=== PATIENT | female | born 1970 | race Caucasian/White ===

== ENCOUNTER → 2019-10-08 | Outpatient (CLI) | payer BC ==
[~2019-10-08] MED LIST: ALEVE 220MG220 MG PO; AMBIEN 10MG10 MG PO
== END ==
LOC: MC.RAD 06:54
DX: N63.20 Unspecified lump in the left breast, unspecified quadrant (principal)
CPT/HCPCS: G0279

== ENCOUNTER 2019-10-09 20:24 | Emergency (ER) | payer BC ==
[~2019-10-09] VITALS: Ht 157.5 cm; Wt 92.9 kg
[2019-10-09 20:31] VITALS: TEMP 99.3
[2019-10-09 20:56] LABS: BASO % 0.3 % (0.0-2.0); EOS # 0.1 (0.0-0.7); GRAN # 7.4 (1.4-6.5); GRAN % 66.1 % (42.2-75.2); HEMOGLOBIN 10.7 g/dl (12.5-16.0); LYMPH # 2.9 (1.2-3.4); LYMPH % 26.2 % (20.0-51.0); MEAN CELL VOLUME 83 fl (80.0-100.0); MEAN CORPUSCULAR HEMOGLOBIN 27 pg (27.0-31.0); MEAN CORPUSCULAR HGB CONC 32 g/dl (33.0-37.0); MEAN PLATELET VOLUME 10.5 fl (7.4-10.4); MONO # 0.7 (0.1-0.6); PLATELET COUNT 253 K/mm3 (130-400); RED BLOOD COUNT 4.03 M/mm3 (4.10-5.30); REDCELL DISTRIBUTION WIDTH-CV 13.8 % (11.5-14.5)
[2019-10-09 20:57] LABS: HEMATOCRIT 33.6 % (37.0-47.0)
[2019-10-09 21:04] LABS: ALANINE AMINOTRANSFERASE 17 U/L (4-34); ALBUMIN 3.2 gm/dL (3.5-5.0); ALKALINE PHOSPHATASE 126 U/L (50-136); ANION GAP 5 mmol/L (7-16); AST,SGOT 22 U/L (15-37); BILIRUBIN,TOTAL 0.5 mg/dL (0.0-1.0); BLOOD UREA NITROGEN 16 mg/dL (7-17); CALCIUM 8.3 mg/dL (8.4-10.2); CARBON DIOXIDE 23 mmol/L (22-30); CHLORIDE 108 mmol/L (98-107); CREATININE, serum 0.57 (0.52-1.25); GLUCOSE 98 mg/dL (74-106); POTASSIUM 3.4 mmol/L (3.4-5.0); SODIUM 136 mmol/L (137-145)
[2019-10-09 21:17] LABS: TROPONIN-I < 0.012 ng/mL (0.000-0.035)
[2019-10-09 21:40] LABS: ARTERIAL BLD GAS O2 SATURATION 96.1 % (92-100); ARTERIAL BLOOD GAS BASE EXCESS -2.4 (-2-2); ARTERIAL BLOOD GAS HCO3 20.1 meq/L (22-26); ARTERIAL BLOOD GAS PCO2 27.8 mmHg (35-45); ARTERIAL BLOOD GAS PO2 79.6 mmHg (80-100); ARTERIAL BLOOD GAS pH 7.48 (7.35-7.45)
[2019-10-09] MEDS ORDERED: AMBIEN 10MG10 MG PO (22:02)
[2019-10-09] MEDS ORDERED: ALEVE 220MG220 MG PO (22:02)
[2019-10-10 00:10] VITALS: BP 108/44; PULSE 128
== END 2019-10-10 00:10 | disposition short-term general hospital (02) ==
LOC: COL.ER 20:24
PROVIDERS: Emergency Medicine
DX: I50.9 Heart failure, unspecified (principal); J90 Pleural effusion, not elsewhere classified; E03.9 Hypothyroidism, unspecified; Z98.890 Other specified postprocedural states; Z95.1 Presence of aortocoronary bypass graft; Z86.59 Personal history of other mental and behavioral disorders
CPT/HCPCS: J1800; J1940; Q9967

== ENCOUNTER 2019-12-09 07:58 | Day surgery (SDC) | payer BC ==
[~2019-12-09] VITALS: Ht 160 cm; Wt 87.0 kg
[2019-12-09] VITALS (7 sets, daily range): BP systolic 101–127; BP diastolic 67–90; PULSE 57–75; TEMP 98.2
[2019-12-09] MEDS ORDERED: LASIX 20MG TABL20 MG PO (08:24)
[2019-12-09] MEDS ORDERED: TOPROL XL100 MG PO (08:24)
[2019-12-09] MEDS ORDERED: TAMBOCOR 1100 MG/TAB PO (08:25)
[2019-12-09] MEDS ORDERED: TAPAZOLE10 MG PO (08:26)
[2019-12-09] MEDS ORDERED: KLOR-CON SPRIN10 MEQ PO (08:26)
[2019-12-09] MEDS ORDERED: ELIQUIS 5MG PO (08:27)
[2019-12-09] MEDS ORDERED: TOPROL XL 25MG25 MG PO (09:26)
[2019-12-09 09:28] LABS: HEMOGLOBIN 13.6 g/dl (12.5-16.0); MEAN CELL VOLUME 84 fl (80.0-100.0); MEAN CORPUSCULAR HEMOGLOBIN 27 pg (27.0-31.0); MEAN CORPUSCULAR HGB CONC 32 g/dl (33.0-37.0); MEAN PLATELET VOLUME 11.1 fl (7.4-10.4); PLATELET COUNT 300 K/mm3 (130-400); RED BLOOD COUNT 5.11 M/mm3 (4.10-5.30); REDCELL DISTRIBUTION WIDTH-CV 16.5 % (11.5-14.5)
[2019-12-09 09:39] LABS: ANION GAP 6 mmol/L (7-16); BLOOD UREA NITROGEN 20 mg/dL (7-17); CALCIUM 8.6 mg/dL (8.4-10.2); CARBON DIOXIDE 25 mmol/L (22-30); CHLORIDE 105 mmol/L (98-107); CREATININE, serum 0.86 (0.52-1.25); GLUCOSE 88 mg/dL (74-106); MAGNESIUM 2.1 mg/dL (1.6-2.3); SODIUM 137 mmol/L (137-145)
[2019-12-09 10:12] LABS: THYROID STIMULATING HORMONE < 0.015 uIU/mL (0.465-4.680)
--- NOTE | 2019-12-09 10:50 | NUR ---
Pt ready for discharge at this time, she has recovered well from her cardioversion, has no complaints. verbalized understanding of dc/fu and rx instructions. iv is dc'd with cath intact, dressing applied.
== END 2019-12-09 10:50 | disposition home or self-care (01) ==
LOC: COL.CAR 07:58
PROVIDERS: Internal Medicine Adult Congenital Heart Disease
DX: I48.19 Other persistent atrial fibrillation (principal); I48.92 Unspecified atrial flutter; I50.32 Chronic diastolic (congestive) heart failure; E05.90 Thyrotoxicosis, unspecified without thyrotoxic crisis or storm; E66.9 Obesity, unspecified; Z68.32 Body mass index [BMI] 32.0-32.9, adult; Z88.1 Allergy status to other antibiotic agents; Z98.84 Bariatric surgery status; Z79.01 Long term (current) use of anticoagulants
CPT/HCPCS: J2704

== ENCOUNTER 2020-11-24 06:19 | Inpatient (IN) | payer OTHER ==
[2020-11-24] VITALS (16 sets, daily range): BP systolic 94–120; BP diastolic 41–68; PULSE 56–79; TEMP 97.7–99.3
[~2020-11-24] VITALS: Ht 157.6 cm; Wt 94.5 kg
[~2020-11-24 06:19] MED LIST changes: +ELIQUIS 5MG PO; +KLOR-CON SPRIN10 MEQ PO; +LASIX 80MG TABL80 MG PO; +TAMBOCOR 1100 MG/TAB PO; +TAPAZOLE10 MG PO; +TOPROL XL 25MG25 MG PO; +TOPROL XL100 MG PO
[2020-11-24 07:22] LABS: INR 1.8 (0.8-3.0); PROTHROMBIN TIME 20.1 SECONDS (9.7-12.8)
[2020-11-24 07:38] LABS: ALANINE AMINOTRANSFERASE 13 U/L (4-34); ALBUMIN 3.4 gm/dL (3.5-5.0); ALKALINE PHOSPHATASE 94 U/L (50-136); ANION GAP 4 mmol/L (7-16); AST,SGOT 21 U/L (15-37); BILIRUBIN,TOTAL 0.3 mg/dL (0.0-1.0); BLOOD UREA NITROGEN 26 mg/dL (7-17); CALCIUM 7.6 mg/dL (8.4-10.2); CARBON DIOXIDE 24 mmol/L (22-30); CHLORIDE 106 mmol/L (98-107); CREATININE, serum 0.89 (0.52-1.25); GLUCOSE 111 mg/dL (74-106); POTASSIUM 3.5 mmol/L (3.4-5.0); SODIUM 134 mmol/L (137-145); TOTAL PROTEIN 6.1 gm/dL (6.4-8.2)
[2020-11-24 07:41] LABS: MEAN CELL VOLUME 90 fl (80.0-100.0); MEAN CORPUSCULAR HGB CONC 32 g/dl (33.0-37.0); MEAN PLATELET VOLUME 11.3 fl (7.4-10.4); PLATELET COUNT 240 K/mm3 (130-400); RED BLOOD COUNT 1.95 M/mm3 (4.10-5.30); REDCELL DISTRIBUTION WIDTH-CV 15.8 % (11.5-14.5)
[2020-11-24 07:43] LABS: HEMOGLOBIN 5.6 g/dl (12.5-16.0); MEAN CORPUSCULAR HEMOGLOBIN 29 pg (27.0-31.0)
[2020-11-24 07:44] LABS: HEMATOCRIT 17.5 % (37.0-47.0)
[2020-11-24] MEDS ORDERED: TOPROL XL 25MG25 MG PO (07:48)
[2020-11-24] MEDS ORDERED: SYNTHROID0.125 MG/T PO (07:49)
[2020-11-24] MEDS ORDERED: K-TAB20 PO (07:49)
[2020-11-24] MEDS ORDERED: MACROBID 1100 MG/CAP PO (07:49)
[2020-11-24] MEDS ORDERED: IRON TABLETS325 MG PO (07:50)
[2020-11-24 07:52] LABS: TROPONIN-I < 0.012 ng/mL (0.000-0.035)
[2020-11-24 08:20] LABS: PARTIAL THROMBOPLASTIN TIME 16.6 SECONDS (26.0-37.0)
[2020-11-24 09:58] LABS: BASO % 0.4 % (0.0-2.0); EOS % 0.3 % (0-4.0); GRAN % 0.3 % (42.2-75.2); LYMPH % 14.6 % (20.0-51.0); MONO % 0.5 % (1.7-9.3)
[2020-11-24 09:59] LABS: LYMPH # 1.5 (1.2-3.4); MONO # 0.5 (0.1-0.6)
[2020-11-24 14:32] LABS: HEMATOCRIT 21.7 % (37.0-47.0); HEMOGLOBIN 6.9 g/dl (12.5-16.0)
--- NOTE | 2020-11-24 14:37 | NUR ---
PT RESTING COMFORTABLY IN BED. NS RUNNING THROUGH IV. MEDCIATIONS GIVEN. PT HAS NO COMPLAINTS AT THIS TIME. COMPLETED ADMISSION ASSESSMENTS. AT BEDSIDE. PT ORIENTED TO ROOM. CALL LIGHT WITHIN REACH. WILL CONTINUE TO MONITOR.
[2020-11-24 18:01] LABS: IRON,SERUM 232 ug/dL (35-150)
[2020-11-24 18:10] LABS: TOTAL IRON BINDING CAPACITY 439 ug/dL (265-497)
--- NOTE | 2020-11-24 20:30 | NUR ---
Initial shift assessment done- VSS, blood infusing-is almost completed- tolerated well-no adverse affects. Has Protonix drip at 20cc/hr, {8mg/hr}, also NS at 60cc/hr, Tele on . Will be NPO after MN. No requests at this time.
[2020-11-24 21:53] LABS: HEMATOCRIT 23.7 % (37.0-47.0); HEMOGLOBIN 7.5 g/dl (12.5-16.0)
[2020-11-25] VITALS (7 sets, daily range): BP systolic 102–119; BP diastolic 53–64; PULSE 58–91; TEMP 98–98.6
--- NOTE | 2020-11-25 06:00 | NUR ---
Did get just a few hours of rest last night-- repeat hgb during the night was 7.5,, Nanette aware. Going for EGD at 0730 this morning-- no stools last night. VSS.IV Fluids up for EGD, NS at 30cc/hr. Denies pain.
--- NOTE | 2020-11-25 07:08 | NUR ---
PT IS SITTING IN BED AWAITING EGD. ENDO HAS CALLED AND SAID THEY WILL BE UP SHORTLY TO GET HER. NO OTHER CONCERNS AT THIS TIME.
[2020-11-25 08:33] LABS: BASO % 0.6 % (0.0-2.0); EOS # 0.1 (0.0-0.7); EOS % 1.1 % (0-4.0); GRAN # 3.6 (1.4-6.5); GRAN % 67.2 % (42.2-75.2); LYMPH # 1.3 (1.2-3.4); LYMPH % 24.4 % (20.0-51.0); MEAN CELL VOLUME 92 fl (80.0-100.0); MEAN CORPUSCULAR HGB CONC 32 g/dl (33.0-37.0); MEAN PLATELET VOLUME 10.1 fl (7.4-10.4); MONO # 0.3 (0.1-0.6); PLATELET COUNT 177 K/mm3 (130-400); RED BLOOD COUNT 2.45 M/mm3 (4.10-5.30)
[2020-11-25 08:48] LABS: CALCIUM 7.3 mg/dL (8.4-10.2); CREATININE, serum 0.84 (0.52-1.25); HEMATOCRIT 22.6 % (37.0-47.0); HEMOGLOBIN 7.2 g/dl (12.5-16.0); MEAN CORPUSCULAR HEMOGLOBIN 29 pg (27.0-31.0); POTASSIUM 3.8 mmol/L (3.4-5.0)
--- NOTE | 2020-11-25 09:29 | NUR ---
PT RETURNED FROM EGD; REPORT STATES NOTHING FOUND. PT WILL REMAIN AT HOSPITAL FOR A COLONOSCOPY ON FRIDAY. ADVANCED TO AHA DIET TOLERATED. PT DENIES ANY PAIN OR NEEDS AT THIS TIME. WILL CONTINUE TO MONITOR.
--- NOTE | 2020-11-25 11:14 | NUR ---
Sw tried to complete assessment but pt was sleeping. Sw to try back later.
--- NOTE | 2020-11-25 12:45 | NUR ---
Sw tried to complete assessment again, but she was on a phone call. Sw to try back again later.
--- NOTE | 2020-11-25 13:13 | NUR ---
stopped by but nothing needed at this time.
[2020-11-25 14:19] LABS: HEMATOCRIT 22.6 % (37.0-47.0); HEMOGLOBIN 7.1 g/dl (12.5-16.0)
--- NOTE | 2020-11-25 14:53 | NUR ---
Sw met with the pt who stated her preference to return home once medically stable. The pt lives at home with her , Christian ph# [phone]. Pt informed Sw that she is independent on all ADLs and does not use any DME. The pt PCP is Dr. Feliz and gets her medications from [facility]. She has no troubles obtaining cost. The pt does not have a D[facility] and is not interested in one at this time. No other needs stated at this time. Sw to await further recommendations and follow up as needed. D/c : home.
--- NOTE | 2020-11-25 15:55 | NUR ---
PT DENIES ANY WANTS OR NEEDS AT THIS TIME. NO OTHER CONCERNS.
--- NOTE | 2020-11-25 20:00 | NUR ---
Initial shift assessment done- Started on Bowel prep of Miralax p.o at this time- Will be NPO after MN, colonoscopy at 0900 tomorrow,, no requests at this time. VSS- will have repaeat H&H at 2200.
[2020-11-25 22:38] LABS: HEMATOCRIT 24.5 % (37.0-47.0); HEMOGLOBIN 7.5 g/dl (12.5-16.0)
[2020-11-26 02:59] VITALS: BP 120/60; PULSE 69; TEMP 98
--- NOTE | 2020-11-26 05:30 | NUR ---
Did finish the bowel prep by midnight,, did not have any stools until about 0400-- liquid black/brown,, up to bathroom numerous times since--slowly clearing up.VSS.
--- NOTE | 2020-11-26 06:30 | NUR ---
PT IS LAYING IN BED UPON ENTRY. HAD JUST RETURNED FROM BATHROOM, THIS RN CHECKED BM WHICH WAS LIQUID, BUT HAD GREENISH BLACK SEDIMENT IN IT.
[2020-11-26 08:35] LABS: BASO # 0.1 (0.0-0.2); BASO % 0.9 % (0.0-2.0); EOS # 0.1 (0.0-0.7); EOS % 1.3 % (0-4.0); GRAN # 3.7 (1.4-6.5); LYMPH # 1.3 (1.2-3.4); LYMPH % 23.5 % (20.0-51.0); MEAN CELL VOLUME 93 fl (80.0-100.0); MEAN CORPUSCULAR HGB CONC 32 g/dl (33.0-37.0); MEAN PLATELET VOLUME 10.4 fl (7.4-10.4); MONO # 0.3 (0.1-0.6); MONO % 5.6 % (1.7-9.3); PLATELET COUNT 211 K/mm3 (130-400); RED BLOOD COUNT 2.52 M/mm3 (4.10-5.30); REDCELL DISTRIBUTION WIDTH-CV 15.4 % (11.5-14.5)
--- NOTE | 2020-11-26 08:36 | NUR ---
PT BEING PICKED UP FOR COLONOSCOPY SHORTLY, BMs HAVE BECOME INCREASINGLY CLEAR, STILL WITH BLACK/GREEN SEDIMENT.
[2020-11-26 08:49] LABS: HEMATOCRIT 23.5 % (37.0-47.0); HEMOGLOBIN 7.5 g/dl (12.5-16.0); MEAN CORPUSCULAR HEMOGLOBIN 30 pg (27.0-31.0)
[2020-11-26 08:50] LABS: CALCIUM 7.6 mg/dL (8.4-10.2); CREATININE, serum 0.81 (0.52-1.25); POTASSIUM 3.7 mmol/L (3.4-5.0)
[2020-11-26 08:53] VITALS: BP 121/65; PULSE 85; TEMP 97.8
[2020-11-26 13:00] VITALS: BP 111/70; PULSE 74; TEMP 98
[2020-11-26 15:32] VITALS: BP 98/49; PULSE 74; TEMP 97.8
[2020-11-26 15:34] VITALS: BP 98/53
[2020-11-26 20:00] VITALS: BP 106/62; PULSE 75; TEMP 98.9
--- NOTE | 2020-11-26 21:52 | NUR ---
PT RESTING COMFORATBLY IN BED. EVENING MEDICATIONS GIVEN. PT HAS NO COMPLAINTS AT THIS TIME. IV IN R WRIST WAS INFILTARTED AND REMOVED, THE OTHER IV IS STILL PATENT. CALL LIGHT WITHIN REACH. WILL CONTINUE TO MONITOR.
[2020-11-27 00:13] VITALS: BP 104/54; PULSE 65; TEMP 97.8
[2020-11-27 03:50] VITALS: BP 108/62; PULSE 63; TEMP 97.8
[2020-11-27 06:57] LABS: BASO % 0.8 % (0.0-2.0); EOS # 0.1 (0.0-0.7); EOS % 1.4 % (0-4.0); GRAN # 3.3 (1.4-6.5); GRAN % 66.9 % (42.2-75.2); LYMPH # 1.2 (1.2-3.4); LYMPH % 24.7 % (20.0-51.0); MEAN CELL VOLUME 95 fl (80.0-100.0); MEAN CORPUSCULAR HGB CONC 31 g/dl (33.0-37.0); MEAN PLATELET VOLUME 11.1 fl (7.4-10.4); MONO # 0.3 (0.1-0.6); MONO % 5.6 % (1.7-9.3); PLATELET COUNT 204 K/mm3 (130-400); RED BLOOD COUNT 2.44 M/mm3 (4.10-5.30); REDCELL DISTRIBUTION WIDTH-CV 15.7 % (11.5-14.5)
[2020-11-27 06:58] LABS: CALCIUM 7.5 mg/dL (8.4-10.2); CREATININE, serum 0.73 (0.52-1.25); POTASSIUM 3.6 mmol/L (3.4-5.0)
[2020-11-27 06:59] LABS: HEMATOCRIT 23.2 % (37.0-47.0); HEMOGLOBIN 7.1 g/dl (12.5-16.0); MEAN CORPUSCULAR HEMOGLOBIN 29 pg (27.0-31.0)
[2020-11-27 07:33] VITALS: BP 110/58; PULSE 67; TEMP 98.4
--- NOTE | 2020-11-27 07:56 | NUR ---
Scheduled medications given. Shift assessment preformed. Patient denies any pain, discomfort, N/V/D, or further needs at this time. Patient A&O. VSS. Call light in reach.
--- NOTE | 2020-11-27 10:06 | NUR ---
Initial visit; Patient thanked Electro[employer] Worker for looking in on her though declined further spiritual care.
[2020-11-27 11:38] VITALS: BP 105/52; PULSE 66; TEMP 98.6
[2020-11-27] MEDS ORDERED: PROTONIX 40MG T40 MG PO (16:26)
[2020-11-27 16:42] VITALS: BP 114/72; PULSE 77; TEMP 98.6
[2020-11-27 16:49] LABS: HEMATOCRIT 25.8 % (37.0-47.0)
--- NOTE | 2020-11-27 18:00 | NUR ---
Patient deemed fit for discharge. Hgb stable at 8.0. IV DC'd, catheter intact, no signs of phlebitis. Discharge education/instructions given. Patient denies any pain, discomfort, needs, questions, or concerns at this time. Patient ambulated from building escorted by [facility] Staff. Family transporting home.
== END 2020-11-27 18:00 | disposition home or self-care (01) | DRG 378 ==
LOC: COL.ER 06:19 → MEDICAL 09:04
PROVIDERS: Family Medicine; Internal Medicine Gastroenterology; Physician Assistant; ADMIT Student in an Organized Health Care Education/Training Program
PROC: 0DB78ZX Excision of Stomach, Pylorus, Via Natural or Artificial Opening Endoscopic, Diagnostic (ICD-10-PCS; principal; 2020-11-25 07:30)
DX: K92.2 Gastrointestinal hemorrhage, unspecified (principal); N39.0 Urinary tract infection, site not specified; Z20.822 Contact with and (suspected) exposure to COVID-19; I95.9 Hypotension, unspecified; E03.9 Hypothyroidism, unspecified; G47.00 Insomnia, unspecified; R00.1 Bradycardia, unspecified; D50.0 Iron deficiency anemia secondary to blood loss (chronic)
CPT/HCPCS: 99222-AI; 99232-AI; 99239; A9560; C9113; J2405; J2704; J7030; P9016